=== PATIENT | female | born 2000 | race African-American/Black ===

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

== ENCOUNTER 2020-05-21 10:00 | Inpatient (IN) ==
[2020-05-21] MEDS ORDERED: MEPERIDINE 50 MG/1 ML VIAL IV PRN (10:11)
[2020-05-21] MEDS ORDERED: ONDANSETRON 4 MG/2 ML VIAL IV PRN (10:11)
[2020-05-21] MEDS ORDERED: BUTORPHANOL 2 MG/ML VIAL IV PRN (10:11)
[2020-05-21 10:29] LABS: Basophils % 0.2 % (0.0-0.8); Eosinophils # 0.3 10*3/uL (0.0-0.87); Eosinophils % 3.2 % (0.00-10.9); Hematocrit 31.4 VOL% (35.7-47.0); Hemoglobin 10.2 GM/DL (12.0-16.0); Immature Granulocytes % 1.3 %; Immature Granulocytes Absolute 0.11 #; Lymphocytes % 23.4 % (21.3-54.2); Mean Corpuscular HGB Conc 32.5 GM/DL (32-36); Mean Corpuscular Volume 96.3 FL (87-102); Mean Platelet Volume 9.8 FL (9.6-12.0); Monocytes % 7.7 % (1.7-12.7); Neutrophils % 64.2 % (38.7-73.9); Platelet Count 245 T/CUMM (130-400); Red Blood Count 3.26 MC/CUMM (3.8-5.5); Red Cell Distribution Width 14.2 % (9.3-17.3); White Blood Count 8.7 T/CUMM (4-12)
[2020-05-21] MEDS ORDERED: OXYTOCIN/LR 20 UNIT/1,000 ML BAG IV SCH ×2 (10:30→11:00)
[2020-05-21] MEDS ORDERED: LACTATED RINGERS 1,000 ML IV SCH (10:30)
[2020-05-21 11:09] LABS: Albumin 2.9 G/DL (3.4-5.0); Bilirubin,Total 0.9 MG/DL (0.2-1.0); Calcium 8.8 MG/DL (8.5-10.1); Osmolality,Calculated 267.1 MOS/KG (273-304); Potassium 3.3 MMOL/L (3.5-5.1)
[2020-05-21] MEDS ORDERED: NALOXONE 0.4 MG/ML VIAL IV PRN (11:09)
[2020-05-21] MEDS ORDERED: CITRIC ACID/SODIUM CITRATE 30 ML UDCUP PO ONE (11:09)
[2020-05-21] MEDS ORDERED: diphenhydrAMINE 50 MG/1 ML VIAL IV PRN ×2 (11:09)
[2020-05-21] MEDS ORDERED: ONDANSETRON 4 MG/2 ML VIAL IV ONE (11:09)
[2020-05-21] MEDS ORDERED: ePHEDrine 50 MG/ML VIAL IV PRN (11:09)
[2020-05-21] MEDS ORDERED: LACTATED RINGERS 1,000 ML IV ONE (11:09)
[2020-05-21] MEDS ORDERED: LACTATED RINGERS 250 ML IV PRN (11:09)
[2020-05-21] MEDS ORDERED: PROMETHAZINE 25 MG/1 ML VIAL IM ONE (11:09)
[2020-05-21] MEDS ORDERED: FAMOTIDINE 20 MG/2 ML VIAL IV ONE (11:09)
[2020-05-21] MEDS ORDERED: hydrOXYzine HCL 25 MG/1 ML VIAL IM PRN (11:09)
[2020-05-21] MEDS ORDERED: AMPICILLIN INJ 2,000 MG in SODIUM CHLORIDE 0.9% 100 ML IV ONE (11:30)
[2020-05-21] MEDS ORDERED: fentaNYL 2 MCG/ROPIV 0.2% EPID 100 ML EPIDURAL SCH (11:30)
[2020-05-21] MEDS ORDERED: TRANEXAMIC ACID 1,000 MG/10 ML VIAL ONE (14:48)
[2020-05-21] MEDS ORDERED: miSOPROStoL 200 MCG TABLET ONE (14:48)
[2020-05-21] MEDS ORDERED: METHYLERGONOVINE 0.2 MG/1 ML AMP ONE (14:48)
[2020-05-21] MEDS ORDERED: CARBOPROST TROMETHAMINE 250 MCG/ML AMP IM ONE (14:49)
[2020-05-21] MEDS ORDERED: AMPICILLIN INJ 1,000 MG in SODIUM CHLORIDE 0.9% 100 ML IV SCH (15:30)
[2020-05-21] MEDS ORDERED: OXYTOCIN/LR 30 UNIT/1,000 ML BAG IV ONE (16:00)
[2020-05-21 16:11] LABS: Bilirubin,Urine Negative (Negative); Blood, Urine Negative (Negative); Glucose,Urine (UA) Negative (Negative); Ketones,Urine Negative (Negative); Mucus,Urine Occasional /LPF (Occasional); Nitrite,Urine Negative (Negative); Protein,Urine Negative; RBC,Urine 4 /HPF (0-4); Urine Appearance CLEAR (Clear); Urine Color Straw (Yellow); Urine Specific Gravity 1.011 (1.001-1.035); Urine Urobilinogen < 2.0 EU/DL (0.2-1.0); WBC,Urine <1 /HPF (0-6)
[2020-05-21 17:26] LABS: Cord Arterial Blood HCO3 21.4 MMOL/L
[2020-05-21 17:28] LABS: Cord Venous Blood HCO3 24.6 MMOL/L; Cord Venous Blood PCO2 42.4 MMHG; Cord Venous Blood PO2 34.4
[2020-05-21] MEDS ORDERED: HYDROCORTISONE 2.5% RECTAL CREAM 30 GM TUBE TOP PRN (20:18)
[2020-05-21] MEDS ORDERED: MEASLES/MUMPS/RUBELLA VACCINE 0.5 ML VIAL SUBCUT ONE (20:18)
[2020-05-21] MEDS ORDERED: LANOLIN 50% CREAM 0.3 OZ TUBE TOP PRN (20:18)
[2020-05-21] MEDS ORDERED: oxyCODONE/ACETAMINOPHEN 5-325 MG TABLET PO PRN (20:18)
[2020-05-21] MEDS ORDERED: WITCH HAZEL PADS 100/JAR TOP PRN (20:18)
[2020-05-21] MEDS ORDERED: BISACODYL 10 MG SUPP RECTAL PRN (20:18)
[2020-05-21] MEDS ORDERED: RHO(D) IMMUNE GLOBULIN 300 MCG SYRINGE IM ONE (20:18)
[2020-05-21] MEDS ORDERED: DIPH/TET/ACEL PERT BOOSTER VACCINE 0.5 ML VIAL IM ONE (20:18)
[2020-05-21] MEDS ORDERED: ACETAMINOPHEN 325 MG TABLET PO PRN (20:18)
[2020-05-21] MEDS ORDERED: OXYTOCIN/LR 20 UNIT/1,000 ML BAG IV ONE (20:18)
[2020-05-21] MEDS ORDERED: BENZOCAINE 20%/MENTHOL 0.5% SPRAY 56 GM CAN TOP PRN (20:18)
[2020-05-21] MEDS: DOCUSATE SODIUM 100 MG CAPSULE PO SCH (20:40)
[2020-05-21] MEDS: IBUPROFEN 800 MG TABLET PO PRN (20:40)
[2020-05-21] MEDS: oxyCODONE/ACETAMINOPHEN 5-325 MG TABLET PO PRN (21:41)
[2020-05-22] MEDS: oxyCODONE/ACETAMINOPHEN 5-325 MG TABLET PO PRN ×2 (06:15→21:23)
[2020-05-22 06:30] LABS: Basophils % 0.3 % (0.0-0.8); Eosinophils # 0.4 10*3/uL (0.0-0.87); Eosinophils % 3.7 % (0.00-10.9); Hematocrit 27.5 VOL% (35.7-47.0); Hemoglobin 8.9 GM/DL (12.0-16.0); Immature Granulocytes % 0.8 %; Immature Granulocytes Absolute 0.08 #; Lymphocytes % 19.9 % (21.3-54.2); Mean Corpuscular HGB Conc 32.4 GM/DL (32-36); Mean Corpuscular Volume 94.8 FL (87-102); Mean Platelet Volume 10.2 FL (9.6-12.0); Monocytes % 8.5 % (1.7-12.7); Neutrophils % 66.8 % (38.7-73.9); Platelet Count 215 T/CUMM (130-400); Red Cell Distribution Width 14.2 % (9.3-17.3)
[2020-05-22] MEDS: DOCUSATE SODIUM 100 MG CAPSULE PO SCH ×2 (08:39→21:22)
[2020-05-22] MEDS: IBUPROFEN 800 MG TABLET PO PRN (14:12)
[2020-05-23 07:47] VITALS: BP 123/62
[2020-05-23] MEDS: DOCUSATE SODIUM 100 MG CAPSULE PO SCH (08:23)
[2020-05-23] MEDS: POTASSIUM CHLORIDE 20 MEQ TABLET PO PRN ×3 (08:23→13:38)
[2020-05-23] MEDS ORDERED: FERROUS SULFATE 325 MG TABLET PO SCH (09:00)
== END 2020-05-23 15:05 | disposition home or self-care (01) | DRG 560 ==
LOC: N.LD 10:00 → N.OB 20:00
PROVIDERS: ADMIT Obstetrics & Gynecology; ATTEND Obstetrics & Gynecology